=== PATIENT | male | born 1965 | race Caucasian/White ===

== ENCOUNTER → 2023-11-11 16:22 | Outpatient (REF) | payer BC, SELFPAY | LOC: RAD 16:22 | PROVIDERS: ATTENDING PHYSICIAN Nurse Practitioner; FAMILY PHYSICIAN Family Medicine | DX: N20.0 Calculus of kidney (principal); R31.0 Gross hematuria | CPT/HCPCS: 74178; Q9967 ==

== ENCOUNTER 2024-11-27 00:46 | Inpatient (IN) | payer BC, SELFPAY ==
[2024-11-26 18:28] VITALS: BP 133/92
[2024-11-26 18:48] LABS: % Basophils 0.4 % (0-2); % Eosinophils 0.6 % (0-6); % Immature Granulocytes 0.4 % (0-0.5); % Lymphocytes 11.1 % (20.5-51.1); % Monocytes 6.5 % (1.7-9.3); Absolute Eosinophils 0.1 10^3/uL (0-0.7); Absolute Lymphocytes 1.2 10^3/uL (1.2-3.4); Absolute Monocytes 0.7 10^3/uL (0.1-0.6); Absolute Neutrophils 8.9 10^3/uL (1.4-6.5); Hematocrit 45.5 % (39.0-52.0); Hemoglobin 15.3 g/dL (13.0-18.0); Mean Corp Hgb Conc. 33.6 g/dL (33.0-37.0); Mean Corpuscular Hgb 29.4 pg (27.0-31.0); Mean Corpuscular Volume 87.5 fL (80.0-94.0); Mean Platelet Volume 10.3 fL (7.4-10.4); Nucleated Red Blood Cells % 0 % (-); Platelet Count 179 10^3/uL (130-400); Red Cell Dist. Width 12.9 % (11.5-14.5)
[2024-11-26 19:02] LABS: ALT (SGPT) 21 U/L (0-50); AST (SGOT) 24 U/L (17-59); Albumin 4.6 g/dl (3.5-5.0); Alkaline Phosphatase 69 U/L (38-126); Blood Urea Nitrogen 21 mg/dl (9-20); Calcium 9.7 mg/dl (8.4-10.2); Carbon Dioxide 20 mmol/L (22-30); Chloride 102 mmol/L (98-107); Glucose 186 mg/dl (70-99); Potassium 4.2 mmol/L (3.5-5.1); Sodium 134 mmol/L (135-145); Total Bilirubin 1.8 mg/dl (0.2-1.3); Total Protein 7.3 g/dl (6.3-8.2); eGFR > 60.00
[2024-11-26 20:07] VITALS: BMI 29.6
[2024-11-26 20:22] LABS: Urine Albumin Negative (Neg - Trace); Urine Bilirubin Negative (Negative); Urine Character Clear (Clear); Urine Color Yellow; Urine Glucose Negative (Negative); Urine Ketone Negative (Negative); Urine Leukocyte Negative (Negative); Urine Nitrite Negative (Negative); Urine Occult Blood Negative (Negative); Urine Urobilinogen Negative (Neg - 1+)
--- NOTE | 2024-11-26 20:37 | ED.GENMED ---
History of Present Illness
General
Chief Complaint: Flank Pain
Time Seen by Provider: 11/26/24 20:06
History of Present Illness
History of Present Illness:
59-year-old male with history of hypertension and hyperlipidemia presents to the emergency department for evaluation of left flank pain and left testicular pain beginning yesterday. Pain radiates toward the left lower back. Denies any hematuria or
dysuria. No fevers or chills.
Past History
Past History
ED Past Medical History: GERD, HTN, Hypercholesterolemia and Other (Kidney stones kidney stones)
ED Past Surgical History: Cardiac (Catheterization)
Social History
Tobacco: Non-smoker
Alcohol: Occasional
Drug: None
Personal:
Living: with family
Review of Systems
Review of Systems
Allergies reviewed?: Yes
All Other Systems: ROS reviewed and negative except as documented in HPI and ROS
Phy Exam
Physical Exam
Physical Exam:
GEN: Well appearing, NAD, WDWN
HEENT: Oral mucosa moist, no scleral icterus
Cardiac: Regular rate
Lung: No respiratory distress, no tachypnea
Abdomen: Soft, grossly nontender
: Unremarkable exam, no focal penile or scrotal tenderness
MSK: No gross deformity or injuries
Skin: Good color, no pallor or jaundice, no rashes
Neuro: AO x3, moves all extremities freely
Psych: Calm, cooperative
Course
Orders/Labs/Results
Orders:
Orders
11/26/24 18:32
Complete Blood Count/With Diff Urgent
Comprehensive Metabolic Panel Urgent
11/26/24 20:14
Urinalysis Reflex To Culture Urgent
Date Specimen was Collected: 11/26/24
Time Specimen was Collected: 20:03
11/26/24 20:36
CT Abd/pel Without Iv Or Oral Urgent
Comment:
Reason For Exam: L flank/inguinal pain
Ketorolac [Toradol] 15 mg IV NOW STA
11/26/24 22:20
HYDROmorphone [Dilaudid] 0.5 mg .ROUTE .STK-MED ONE
11/26/24 22:22
HYDROmorphone [Dilaudid] 0.5 mg IV NOW STA
11/26/24 22:49
HYDROmorphone [Dilaudid] 0.5 mg IV NOW STA
Abnormal Lab Results
11/26/24
18:32
WBC 11.0 H 10^3/uL
(4.8-10.8)
Absolute Neuts (auto) 8.9 H 10^3/uL
(1.4-6.5)
Absolute Monos (auto) 0.7 H 10^3/uL
(0.1-0.6)
Neutrophils % 81.0 H %
(42.2-75.2)
Lymphocytes % 11.1 L %
(20.5-51.1)
Sodium 134 L mmol/L
(135-145)
Carbon Dioxide 20 L mmol/L
(22-30)
BUN 21 H mg/dl
(9-20)
Glucose 186 H mg/dl
(70-99)
Total Bilirubin 1.8 H mg/dl
(0.2-1.3)
11/26/24 18:32
11/26/24 18:32
Vital Signs
Initial and Last Documented VS:
Initial Vital Signs
Temp Pulse Resp BP Pulse Ox
98.4 F 96 16 133/92 97
11/26/24 18:28 11/26/24 18:28 11/26/24 18:28 11/26/24 18:28 11/26/24 18:28
Last Documented Vital Signs
Temp Pulse Resp BP Pulse Ox
98.4 F 77 18 111/71 98
11/26/24 18:28 11/26/24 22:12 11/26/24 22:12 11/26/24 22:12 11/26/24 22:12
MDM/Problems Addressed
MDM/Problems Addressed:
Large proximal stone with uncontrolled pain, will admit for urologic intervention
*Critical Care Note
Total Time (30-74mins, 75-104mins- exclusive of procedures): Not Applicable
ED Attending Note
-
Portions of this chart may have been created with voice recognition software.� Occasional wrong word or��sound alike� substitutions may have occurred due to the inherent limitations of voice recognition software.
Discharge Plan
Departure
Patient Disposition: Admit
Date of Disposition: 11/26/24
Time of Disposition: 23:06
Presentation/result/management discussed w/ accepting MD/DO: Hospitalist
Discharge Problem:
Left ureteral stone
Prescriptions:
No Action
hydrocodone-acetaminophen 5 MG/500 MG tablet
1 tab PO Q4HPRN PRN (Reason: pain) Qty: 20 0RF
oxycodone-acetaminophen 5 MG/325 MG tablet
1 tab PO Q4HPRN PRN (Reason: pain) Qty: 17 0RF
tamsulosin 0.4 MG capsule
0.4 mg PO DAILY Qty: 7 0RF
ondansetron 4 MG tablet,disintegrating
4 mg PO TIDPRN PRN (Reason: nausea/vomiting) Qty: 11 0RF
cephalexin 500 mg capsule
500 mg PO QID 7 Days Qty: 28 0RF
Referrals:
Yasmin Ferraro MD [Family Provider] -
Interventions
Interventions:
*Risk Screen - Suicide Last Done: 11/26/24 18:31
*General Assessment Last Done: 11/26/24 20:07
*Neglect/Abuse Screening Last Done: 11/26/24 18:31
*ED- Fall Risk Assessment Last Done: 11/26/24 20:07
*ED COVID-19 Vaccine History Last Done: 11/26/24 20:07
RH-Ciqylx-Oytymxneko Assessment Last Done: 11/26/24 20:07
ED-Male Genitourinary Assessment Last Done: 11/26/24 20:07
Discharge Date and Time
Print Language: GREEK
[2024-11-26] MEDS: TORADOL 15 MG IV (20:46)
[2024-11-26 22:12] VITALS: BP 111/71
[2024-11-26] MEDS: DILAUDID 0.5 MG IV ×2 (22:22→23:23)
[2024-11-26 23:22] VITALS: BP 121/86
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
[2024-11-27] VITALS (15 sets, daily range): BP systolic 94–126; BP diastolic 58–91; BMI 29.7
--- NOTE | 2024-11-27 00:35 | W.PN.UPDATE ---
Update Note
Progress Note Update
Patient seen in conjunction with MANAGER PERIOPERATIVE. I agree with the findings and physical. I concur with the assessment along.
Briefly, this is a 59-year-old with past medical history of hypertension, hyperlipidemia, BPH and history of nephrolithiasis as well as passed kidney stones in the past presents to the emergency department with left-sided flank pain as well as pain
radiating to the groin and testicles. Denies fevers or chills. Denies any nausea or vomiting. Did not see any blood in his urine.
In the emergency department he was afebrile, hemodynamically stable. Sent pain. CBC was unremarkable with a white count of 11 and normal hemoglobin and platelet. Electrolytes were unremarkable. BUN and creatinine were normal. A CT scan of the
abdomen pelvis revealed a obstructing stone at the left ureteropelvic junction with moderate left renal pelvic and calyceal dilation as well as perinephric edema. UA was negative for blood, bacteria or WBCs.
Renal colic with hydronephrosis, preserved renal function, no signs of acute infection
Admit to [facility]
- pain control iv fluids
- continue tamsulosin
- strain urine
- NPO at breakfast
- no abx for now
- urology consulted and notified
DVT PPX - SCDs
Code status - Full Code
[2024-11-27] MEDS: MORPHINE SULFATE 4 MG IV (01:44)
[2024-11-27] MEDS: FLUSH (NSS) 1 FLUSH IV (01:47)
[2024-11-27] MEDS: DILAUDID 0.5 MG IV ×2 (03:11→09:21)
[2024-11-27] MEDS: NSS 1000 IV ×4 (03:16→20:37)
[2024-11-27 04:49] LABS: Hematocrit 42.9 % (39.0-52.0); Hemoglobin 14.4 g/dL (13.0-18.0); Mean Corp Hgb Conc. 33.6 g/dL (33.0-37.0); Mean Corpuscular Hgb 29.9 pg (27.0-31.0); Mean Corpuscular Volume 89.2 fL (80.0-94.0); Mean Platelet Volume 11.1 fL (7.4-10.4); Platelet Count 185 10^3/uL (130-400); Red Blood Cell Count 4.81 10^6/uL (4.70-6.10); Red Cell Dist. Width 12.9 % (11.5-14.5)
[2024-11-27 05:25] LABS: Blood Urea Nitrogen 21 mg/dl (9-20); Calcium 9.4 mg/dl (8.4-10.2); Carbon Dioxide 27 mmol/L (22-30); Chloride 104 mmol/L (98-107); Estimated Creatinine Clearance 63 ml/min; Glucose 112 mg/dl (70-99); Potassium 5.3 mmol/L (3.5-5.1); Sodium 136 mmol/L (135-145); eGFR > 60.00
[2024-11-27] MEDS: DILAUDID 0.25 MG IV (06:29)
[2024-11-27] MEDS: PROTONIX 40 MG PO (09:13)
[2024-11-27] MEDS: TYLENOL 650 MG PO (09:13)
[2024-11-27] MEDS: ASPIR LOW (ENTERIC COATED) 81 MG PO (09:13)
[2024-11-27] MEDS: ZESTRIL 40 MG PO (09:14)
[2024-11-27] MEDS: CRESTOR 20 MG PO (09:14)
[2024-11-27] MEDS: FLOMAX 0.4 MG PO (09:14)
--- NOTE | 2024-11-27 09:44 | W.PN.URO.CBU ---
Today's Communication / Plan
-
to op romm observe for sepsis
Assessment / Plan
-
fever with obstructing stone few oither non obstructing stones left kidney for cysto stent cultursa
Diagnosis
-
Date of Service: November 27, 2024
-
Patient Diagnosis:left upj stone developred chills fevr this am
Post Op Day:
Subjective
-
left vcolic fevr
Objective
-
Vital Signs
Temp Pulse Resp BP Pulse Ox
100.5 F H 87 16 126/75 97
11/27/24 08:15 11/27/24 09:14 11/27/24 08:15 11/27/24 09:14 11/27/24 08:15
Intake and Output
11/26/24 11/27/24 11/28/24
06:59 06:59 06:59
Intake Total 650 / 650
Balance 650 / 650
Intake:
IV fluids (Total) 650 / 650
Laboratory Results
11/27/24 04:26
11/27/24 04:26
Review of Systems
-
Constitutional: Fever, Fatigue and Chills
: Flank Pain
Physical Exam
-
General - well developed, well nourished, no acute distress pain non toxic
Chest - clear bilaterally
Abdomen - soft, non-tender, positive bowel sounds, left CVAT, no incisional pain or distention
Genitalia - normal
Rectal - normal
Skin - warm & dry with no rash
Neuro - AOx3, no motor deficits
Extremities - no clubbing, no cyanosis, no edema
Incision - clean, dry
Dressing - clean, dry, intact
Care Review
Data Reviewed
Discussed with: Hospitalist, Nursing and Family
CT Scan: Image Pers Reviewed
[2024-11-27] MEDS: STERILE WATER FOR INJECTION 10 ML IV (10:32)
[2024-11-27] MEDS: NSS IV (10:32)
[2024-11-27] MEDS: ROCEPHIN 1000 MG IV (10:32)
--- NOTE | 2024-11-27 13:06 | PTCARENOTE ---
Received patient from PACU via bed. Pt AAOX3. Pox: 94% RA. IVFs infusing without difficulty. Call blank within reach. Plan of care ongoing. at bedside.
--- NOTE | 2024-11-27 16:05 | W.PN.HOSP.TC ---
Today's Communication/Plan
-
Assessment / Plan
Assessment / Plan
Gen-AAOx3, NAD
HEENT-NC, AT, anicteric, clear oral mm
Neck-supple
CV-reg, no M, +S1/S2
Lungs-clear B/L
Abd-soft, NT, ND
Musculoskeletal-no edema, no deformity
Skin-warm and dry
Neuro-grossly non-focal
Psych-calm, cooperative
Mr. Malin is a 59-year-old male with a medical history of hypertension, enlarged prostate, and GERD who presented with left flank pain radiating to his groin. CT imaging showed an obstructing left UPJ stone with moderate left renal pelvic and
calyceal dilatation and perinephric fat stranding. He has been admitted for further evaluation and management.
Left UPJ stone with suspected pyelonephritis:
-Started on antibiotics with ceftriaxone
-Urinalysis bland
-OR today with urology for stent placement, Pal in place for now
-Continue IV fluids
-Pain control and antiemetics as needed
-Dispo Home tomorrow after Pal removal if remains hemodynamically stable
RADHA:
-Suspect secondary to infected stone
-Continue IV fluids, monitor, treatment of stone as above
Hyperkalemia:
-Mildly elevated, suspect secondary to renal dysfunction in the setting of obstructing stone
-Continue treatment of stone as above
-Monitor on repeat labs in the morning
Hyperbilirubinemia:
-Very mildly elevated total bili of 1.8, unclear significance
-Will repeat LFTs with morning labs
Hypertension:
-Home lisinopril 40 mg daily as blood pressure tolerates, currently holding due to borderline hypotension postoperatively
Enlarged prostate:
-Continue home Flomax
CODE STATUS: Full code
Anticipated Discharge: 24 - 48 hours
Subjective/Interval History
-
Date of Service: November 27, 2024
Patient was seen and examined this morning. Currently pain-free after receiving pain medications. Awaiting OR with urology today. Low-grade fever this morning with associated chills. Cultures obtained and started on antibiotics.
Objective Data
-
Labs:
Laboratory Results
11/27/24
04:26
WBC 11.0 H
Hgb 14.4
Hct 42.9
Plt Count 185
Sodium 136
Potassium 5.3 H D
Chloride 104
Carbon Dioxide 27
BUN 21 H
Creatinine 1.3
Glucose 112 H
Calcium 9.4
Vital Signs:
Vital Signs
Temp Pulse Resp BP Pulse Ox
97.5 F 101 16 105/61 95
11/27/24 15:45 11/27/24 15:45 11/27/24 15:45 11/27/24 15:45 11/27/24 15:45
I&O
11/26/24 11/27/24 11/28/24
06:59 06:59 06:59
Intake Total 650 / 650 100 / 100
Output Total 450 / 450
Balance 650 / 650 -350 / -350
Review of Systems
-
History Source: Patient
All other systems: Reviewed and negative
Constitutional: Reports Fever
Physical Exam
-
General: No Apparent Distress
[2024-11-28 03:30] VITALS: BP 103/63
--- NOTE | 2024-11-28 05:56 | PTCARENOTE ---
Pal removed. Patient tolerated well. OOB ambulating ad kim, in the room
[2024-11-28 06:05] LABS: Hematocrit 40.1 % (39.0-52.0); Hemoglobin 13.6 g/dL (13.0-18.0); Mean Corp Hgb Conc. 33.9 g/dL (33.0-37.0); Mean Corpuscular Hgb 30.5 pg (27.0-31.0); Mean Corpuscular Volume 89.9 fL (80.0-94.0); Mean Platelet Volume 10.9 fL (7.4-10.4); Platelet Count 185 10^3/uL (130-400); Red Blood Cell Count 4.46 10^6/uL (4.70-6.10)
[2024-11-28 06:27] LABS: ALT (SGPT) 14 U/L (0-50); AST (SGOT) 18 U/L (17-59); Albumin 3.5 g/dl (3.5-5.0); Alkaline Phosphatase 60 U/L (38-126); Blood Urea Nitrogen 18 mg/dl (9-20); Carbon Dioxide 24 mmol/L (22-30); Chloride 103 mmol/L (98-107); Estimated Creatinine Clearance 102 ml/min; Glucose 123 mg/dl (70-99); Magnesium 1.9 mg/dl (1.6-2.3); Phosphorus 3.4 mg/dl (2.5-4.5); Potassium 4.7 mmol/L (3.5-5.1); Sodium 137 mmol/L (135-145); Total Bilirubin 1.4 mg/dl (0.2-1.3); eGFR > 60.00
[2024-11-28 07:34] VITALS: BP 109/69
[2024-11-28] MEDS: PROTONIX 40 MG PO (08:20)
[2024-11-28] MEDS: FLOMAX 0.4 MG PO (08:20)
[2024-11-28] MEDS: CRESTOR 20 MG PO (08:20)
[2024-11-28] MEDS: ASPIR LOW (ENTERIC COATED) 81 MG PO (08:20)
--- NOTE | 2024-11-28 10:14 | W.PN.URO.CBU ---
Today's Communication / Plan
-
plan per hospitalist
Assessment / Plan
-
fever with obstructing stone f now stented stable will check cxs home if neg bloos cxs
Diagnosis
-
Date of Service: November 28, 2024
-
Patient Diagnosis:
Post Op Day:
Patient Diagnosis:
Post Op Day:
Patient Diagnosis:left upj stone developred chills so stebted yesterday srtable over pm hours
Post Op Day:
Subjective
-
stent discomfort
Objective
-
Vital Signs
Temp Pulse Resp BP Pulse Ox
98.1 F 62 18 109/69 98
11/28/24 07:34 11/28/24 07:34 11/28/24 07:34 11/28/24 07:34 11/28/24 07:34
Intake and Output
11/27/24 11/28/24 11/29/24
06:59 06:59 06:59
Intake Total 650 / 650 3451 / 3451
Output Total 3550 / 3550
Balance 650 / 650 -99 / -99
Intake:
IV fluids (Total) 650 / 650 3451 / 3451
nss 100 / 100
Output:
Urine, Pal 3250 / 3250
Urine, Voided 300 / 300
Laboratory Results
11/28/24 05:47
11/28/24 05:47
Review of Systems
-
: Frequency, Urgency and Dark Urine
Physical Exam
-
General - well developed, well nourished, no acute distress
Chest - clear bilaterally
Abdomen - soft, non-tender, positive bowel sounds, no CVAT, no incisional pain or distention
Genitalia - normal
Rectal - normal
Skin - warm & dry with no rash
Neuro - AOx3, no motor deficits
Extremities - no clubbing, no cyanosis, no edema
Incision - clean, dry
Dressing - clean, dry, intact
Care Review
Data Reviewed
Discussed with: Hospitalist
CT Scan: Image Pers Reviewed
[2024-11-28] MEDS: NSS IV (10:53)
[2024-11-28] MEDS: ROCEPHIN 1000 MG IV (10:54)
[2024-11-28] MEDS: STERILE WATER FOR INJECTION 10 ML IV (10:54)
[2024-11-28] MEDS: FLUSH (NSS) 1 FLUSH IV (10:55)
[2024-11-28 10:59] VITALS: BP 120/75
--- NOTE | 2024-11-28 12:44 | W.DCSUMMARY ---
Discharge Summary
Discharge Data
Date of Admission: 11/27/24
Date of Discharge: 11/28/24
-
Pending Results: No
Hospital Course
Mr. Malin is a 59-year-old male with a medical history of hypertension, enlarged prostate, and GERD who presented with left flank pain radiating to his groin. CT imaging showed an obstructing left UPJ stone with moderate left renal pelvic and
calyceal dilatation and perinephric fat stranding. He was admitted for further evaluation and management.
He was brought to the OR with urology on 11/27 for stent placement. Pal catheter was left in place after procedure but removed the following morning. Patient is voiding spontaneously. IV fluids have been discontinued. He was started on
antibiotics prior to the OR for low-grade fever of 100.5 �F. He will be continued on antibiotics with cefpodoxime for 5 more days after discharge to complete a 7-day antibiotic course. Urine and blood cultures were negative. He had a mild RADHA and
hyperkalemia which resolved with IV fluids. He had a leukocytosis at time of admission that persisted throughout his hospitalization which was likely reactive, however he will be continued empirically on antibiotics. He will be given a
prescription for Pyridium for mild dysuria after transurethral procedure. He should be aware that Pyridium can cause his urine to appear orange which is to be expected and should not cause alarm. He will need to follow-up in the outpatient urology
office for further management. At time of hospital discharge she was medically stable.
Gen-AAOx3, NAD
HEENT-NC, AT, anicteric, clear oral mm
Neck-supple
CV-reg, no M, +S1/S2
Lungs-clear B/L
Abd-soft, NT, ND
Musculoskeletal-no edema, no deformity
Skin-warm and dry
Neuro-grossly non-focal
Psych-calm, cooperative
More than 30 minutes spent in discharge including
Final examination of the patient
Summarizing hospital stay
Instructions for continuing care to all relevant caregivers
Preparation of discharge records, prescriptions, and referral forms
Total time spent (in minutes): 44
Discharge Plan
-
Patient Disposition: Home (Routine Discharge)
Discharge Diagnosis/Procedures: Left UPJ stone
Diet: No restrictions
Activity: As tolerated
Activity Restrictions/Additional Instructions:
Mr. Malin is a 59-year-old male with a medical history of hypertension, enlarged prostate, and GERD who presented with left flank pain radiating to his groin. CT imaging showed an obstructing left UPJ stone with moderate left renal pelvic and
calyceal dilatation and perinephric fat stranding. He was admitted for further evaluation and management.
He was brought to the OR with urology on 11/27 for stent placement. Pal catheter was left in place after procedure but removed the following morning. Patient is voiding spontaneously. IV fluids have been discontinued. He was started on
antibiotics prior to the OR for low-grade fever of 100.5 �F. He will be continued on antibiotics with cefpodoxime for 5 more days after discharge to complete a 7-day antibiotic course. Urine and blood cultures were negative. He had a mild RADHA and
hyperkalemia which resolved with IV fluids. He had a leukocytosis at time of admission that persisted throughout his hospitalization which was likely reactive, however he will be continued empirically on antibiotics. He will be given a
prescription for Pyridium for mild dysuria after transurethral procedure. He should be aware that Pyridium can cause his urine to appear orange which is to be expected and should not cause alarm. He will need to follow-up in the outpatient urology
office for further management. At time of hospital discharge she was medically stable.
Referrals:
Bhavin Anna MD [Active] - (you have a stent Expect frequency burning and blood in urine and left flank discomfort Call Dr Anna [phone] to schedule next phase of tx appox in 2- 3 weeks call if fever chills or problems.
Diamante jalloh note we would love to have you stay with us but you do have a urologist so if you feel more comfortable with [facility] feel free to follow up there )
Yasmin Ferraro MD [Family Provider] -
Prescriptions:
New
phenazopyridine [Pyridium] 100 mg tablet
100 mg PO TID PRN (Reason: Pain with urination) Qty: 6 0RF
cefpodoxime 200 mg tablet
200 mg PO BID 5 Days Qty: 10 0RF
Continued
tamsulosin 0.4 MG capsule
0.4 mg PO DAILY Qty: 7 0RF
aspirin 81 mg Tablet,Delayed Release (Dr/Ec)
81 mg PO DAILY
ibuprofen 200 mg Tablet
200 mg PO Q6HPRN PRN (Reason: mild pain)
lisinopril 40 mg Tablet
40 mg PO DAILY
rosuvastatin 20 mg Tablet
20 mg PO DAILY
Held
omeprazole magnesium [Prilosec OTC] 20 mg Tablet,Delayed Release (Dr/Ec)
20 mg PO DAILY
Hold Instructions: Hold until completed antibiotic course to avoid potential adverse interactions
Discharge Orders:
Discharge Patient (As Directed); Ordered 11/28/24
Ordered By: Austyn Pal
Discharge Date and Time
Print Language: BELARUSIAN
[2024-11-28 13:59] VITALS: BP 101/72
== END 2024-11-28 14:44 | disposition home or self-care (01) | DRG 661 ==
LOC: 4 WEST ACU 00:46
PROVIDERS: Emergency Medicine; Registered Nurse; ADMITTING PHYSICIAN Internal Medicine; ATTENDING PHYSICIAN Internal Medicine; CONSULT PHYSICIAN Specialist; EMERGENCY PHYSICIAN Emergency Medicine; FAMILY PHYSICIAN Internal Medicine
PROC: 0T778DZ Dilation of Left Ureter with Intraluminal Device, Via Natural or Artificial Opening Endoscopic (ICD-10-PCS; 2024-11-27)
DX: N13.2 Hydronephrosis with renal and ureteral calculous obstruction (principal); I10 Essential (primary) hypertension; K21.9 Gastro-esophageal reflux disease without esophagitis; E78.00 Pure hypercholesterolemia, unspecified; N40.0 Benign prostatic hyperplasia without lower urinary tract symptoms; J45.909 Unspecified asthma, uncomplicated; I25.10 Atherosclerotic heart disease of native coronary artery without angina pectoris; G47.30 Sleep apnea, unspecified; Z79.82 Long term (current) use of aspirin; K80.20 Calculus of gallbladder without cholecystitis without obstruction; K76.0 Fatty (change of) liver, not elsewhere classified; Z87.442 Personal history of urinary calculi
CPT/HCPCS: 74018; 74176; 76000; 80048; 80053; 81003; 83735; 84100; 85025; 85027; 87040; 87086; 96374; 96375; 99284; A4300; C1894; C2617

== ENCOUNTER 2024-12-16 06:18 | Day surgery (SDC) | payer BC, SELFPAY ==
[2024-12-09 14:01] VITALS: BMI 29.3
[2024-12-16] VITALS (9 sets, daily range): BP systolic 99–127; BP diastolic 63–86; BMI 29.3
[2024-12-16] MEDS: NORMOSOL-R/PLASMALYTE-A 1000 IV (08:09)
[2024-12-16 08:16] LABS: Urine Albumin Negative (Neg - Trace); Urine Bilirubin Negative (Negative); Urine Character Clear (Clear); Urine Color Yellow; Urine Glucose Negative (Negative); Urine Ketone Negative (Negative); Urine Leukocyte Negative (Negative); Urine Nitrite Negative (Negative); Urine Occult Blood 1+ (Negative); Urine Specific Gravity 1.005 (<1.030); Urine Urobilinogen Negative (Neg - 1+)
[2024-12-16 08:29] LABS: Urine Squamous Cell 0-2 /LPF (Few)
[2024-12-16 08:30] LABS: Urine Bacteria Few (Negative); Urine Red Blood Cell 0-2 /HPF (0-2); Urine White Cell 0-2 /HPF (0-5)
[2024-12-16] MEDS: Pyridium 200 MG PO (10:18)
[2024-12-16] MEDS: ZOFRAN 4 MG IV (10:30)
[2024-12-16] MEDS: LIDOCAINE URO-JET 2% 1 SYRINGE TOPICAL (10:33)
== END 2024-12-16 11:40 | disposition home or self-care (01) ==
LOC: SDS 06:18
PROVIDERS: ATTENDING PHYSICIAN Specialist; FAMILY PHYSICIAN Internal Medicine
DX: N20.2 Calculus of kidney with calculus of ureter (principal)
CPT/HCPCS: 52356; 74018; 76000; 81003; 81015; 82365; 87086; 93005; C1894; C2617; J1580